=== PATIENT | female | born 1945 | race Caucasian/White ===

== ENCOUNTER 2023-07-16 10:12 | Outpatient (CLI) | payer MEDICARE, BC | END 2023-07-16 10:13 | disposition home or self-care (01) | LOC: MRI 10:12 | PROVIDERS: ATTEND Family Medicine | DX: H53.2 Diplopia (principal); H53.9 Unspecified visual disturbance; G93.9 Disorder of brain, unspecified; J34.89 Other specified disorders of nose and nasal sinuses | CPT/HCPCS: 70553; 82565 ==

== ENCOUNTER 2023-08-02 14:13 | Outpatient (CLI) | payer MEDICARE, BC | END 2023-08-02 14:14 | disposition home or self-care (01) | LOC: BICRAD 14:13 | PROVIDERS: ATTEND Family Medicine | DX: M25.562 Pain in left knee (principal); M25.552 Pain in left hip; M16.12 Unilateral primary osteoarthritis, left hip ==

== ENCOUNTER 2023-08-14 08:13 | Outpatient (CLI) | payer MEDICARE, BC | END 2023-08-14 08:14 | disposition home or self-care (01) | LOC: BICULT 08:13 | PROVIDERS: ATTEND Family Medicine | DX: R10.30 Lower abdominal pain, unspecified (principal); N28.1 Cyst of kidney, acquired | CPT/HCPCS: 76700 ==

== ENCOUNTER 2023-10-29 13:02 | Outpatient (CLI) | payer MEDICARE, BC | END 2023-10-29 13:03 | disposition home or self-care (01) | LOC: CT 13:02 | PROVIDERS: ATTEND Family Medicine | DX: M79.661 Pain in right lower leg (principal); M79.662 Pain in left lower leg; R07.9 Chest pain, unspecified; R79.89 Other specified abnormal findings of blood chemistry | CPT/HCPCS: 71275; 82565; 93970 ==

== ENCOUNTER 2024-01-28 14:07 | Outpatient (CLI) | payer MEDICARE, BC ==
[2024-01-28 16:00] LABS: #Basophils 0.07 10x3/uL (0.0-0.2); #Eosinphils 0.18 10x3/uL (0.0-0.5); #Monocytes 0.57 10x3/uL (0.0-1.1); #Neutrophils 4.68 10x3/uL (1.5-8.4); %Eosinophils 2.7 % (0.0-6.0); %Monocytes 8.5 % (0.0-10.0); %Neutrophils 69.7 % (40.0-75.0); Hematocrit 32.4 % (34.9-44.5); Hemoglobin 11.1 g/dL (12.0-15.5); Mean Corpuscular HGB CONC 34.3 g/dL (32.0-36.0); Mean Corpuscular Volume 93.4 fl (81.6-98.3); Mean Platelet Volume 11.7 fl (7.4-10.4); Platelet Count 186 10x3/uL (150-450); RBC Distribution Width 12.8 % (11.5-14.5); Red Blood Cell (RBC) Count 3.47 10x6/uL (3.90-5.03); White Blood Cell (WBC) Count 6.7 10x3/uL (3.5-10.5)
[2024-01-28 16:31] LABS: ALT (SGPT) 13 U/L (8-55); AST (SGOT) 17 U/L (5-34); Albumin 3.8 g/dL (3.4-4.8); Alkaline Phosphatase 52 U/L (40-110); Anion Gap 16 mmol/L (10-20); BUN (Urea Nitrogen) 27 mg/dL (9.8-20.1); Bilirubin, Total 0.3 mg/dL (0.2-1.2); Calc. Creatinine Clearance 0 mL/min (70-130); Calcium 10.4 mg/dL (7.8-10.44); Carbon Dioxide 19 mmol/L (23-31); Chloride 104 mmol/L (98-107); Estimated GFR 34; Globulin 2.4 g/dL (2.4-3.5); Glucose 281 mg/dL (83-110); Potassium 4.8 mmol/L (3.5-5.1); Protein, Total 6.2 g/dL (5.8-8.1); Sodium 134 mmol/L (136-145)
== END 2024-01-28 14:08 | disposition home or self-care (01) ==
LOC: LABBT 14:07
PROVIDERS: ATTEND Internal Medicine Cardiovascular Disease
DX: Z01.812 Encounter for preprocedural laboratory examination (principal); R07.9 Chest pain, unspecified; I25.10 Atherosclerotic heart disease of native coronary artery without angina pectoris
CPT/HCPCS: 80053; 85025

== ENCOUNTER 2024-01-29 06:45 | Day surgery (SDC) | payer MEDICARE, BC ==
[2024-01-28 14:32] VITALS: BMI 30.2
[2024-01-29] MEDS ORDERED: fentaNYL 50 mcg/mL 1 mL Vial ONE ×2 (09:07→10:13)
[2024-01-29] MEDS ORDERED: Midazolam HCl 2 mg/2 ml Vial ONE (09:07)
[2024-01-29] MEDS ORDERED: Heparin 10,000 UNITS/ 10 ML VIAL ONE (09:15)
[2024-01-29] MEDS ORDERED: hydrALAZINE 20 MG/ML VIAL ONE (10:03)
[2024-01-29] MEDS ORDERED: Acetaminophen/Codeine 30-300mg Tablet ONE (13:59)
[2024-01-29] MEDS ORDERED: Lisinopril 10 MG TAB ONE (14:38)
== END 2024-01-29 15:10 | disposition home or self-care (01) ==
LOC: SDC 06:45
PROVIDERS: ATTEND Internal Medicine Cardiovascular Disease
PROC: 4A023N7 Measurement of Cardiac Sampling and Pressure, Left Heart, Percutaneous Approach (ICD-10-PCS; principal; 2024-01-29)
DX: I25.118 Atherosclerotic heart disease of native coronary artery with other forms of angina pectoris (principal); I73.9 Peripheral vascular disease, unspecified; E78.00 Pure hypercholesterolemia, unspecified; I10 Essential (primary) hypertension; R94.39 Abnormal result of other cardiovascular function study; I35.0 Nonrheumatic aortic (valve) stenosis; E03.9 Hypothyroidism, unspecified; E11.9 Type 2 diabetes mellitus without complications; E78.5 Hyperlipidemia, unspecified; Z88.1 Allergy status to other antibiotic agents; Z86.711 Personal history of pulmonary embolism; Z88.2 Allergy status to sulfonamides; Z88.8 Allergy status to other drugs, medicaments and biological substances; Z90.710 Acquired absence of both cervix and uterus; Z96.653 Presence of artificial knee joint, bilateral; Z79.890 Hormone replacement therapy; Z79.82 Long term (current) use of aspirin; Z79.899 Other long term (current) drug therapy
CPT/HCPCS: 93458; C1769 ×2; C1887; C1894; J0360; J3010; J1644; J2250

== ENCOUNTER 2024-02-14 08:00 | Inpatient (IN) | payer MEDICARE, BC ==
[2024-02-14 09:22] LABS: Hematocrit 36.6 % (34.9-44.5); Hemoglobin 12.3 g/dL (12.0-15.5); Mean Corpuscular HGB CONC 33.6 g/dL (32.0-36.0); Mean Corpuscular Hemoglobin 31.9 pg (27.0-33.0); Mean Corpuscular Volume 95.1 fL (81.6-98.3); Mean Platelet Volume 10.8 fL (7.4-10.4); Platelet Count 230 10x3/uL (150-450); RBC Distribution Width 13.4 % (11.5-14.5); Red Blood Cell (RBC) Count 3.85 10x6/uL (3.90-5.03)
[2024-02-14 09:58] LABS: Anion Gap 12 mmol/L (10-20); BUN (Urea Nitrogen) 20 mg/dL (9.8-20.1); Calc. Creatinine Clearance 0 mL/min (70-130); Calcium 10.3 mg/dL (7.8-10.44); Carbon Dioxide 24 mmol/L (23-31); Chloride 103 mmol/L (98-107); Estimated GFR 46; Glucose 119 mg/dL (83-110); Potassium 4.2 mmol/L (3.5-5.1); Sodium 135 mmol/L (136-145)
[2024-02-17] MEDS ORDERED: Cardioplegic Soln 1,000 ML BAG ONE (07:36)
[2024-02-17] MEDS ORDERED: PHENYLEPHRINE-NS 100 MCG/ML 10 ML SYRINGE ONE (07:36)
[2024-02-17] MEDS ORDERED: PROPOFOL 200 MG/20 ML VIAL ONE (07:36)
[2024-02-17] MEDS ORDERED: Papaverine 60 MG/2 ML VIAL ONE (07:36)
[2024-02-17] MEDS ORDERED: Thrombin 5000 UNITS/5 ML VIAL ONE (07:36)
[2024-02-17] MEDS ORDERED: Ondansetron PF 4 MG/2 ML Vial ONE (07:36)
[2024-02-17] MEDS ORDERED: Heparin 5,000 UNITS/ML VIAL ONE (07:36)
[2024-02-17] MEDS ORDERED: Calcium Chloride 1 GM/10 ML Abboject SYRINGE ONE (07:36)
[2024-02-17] MEDS ORDERED: Potassium Chloride 60 mEq (30 mL) VIAL ONE (07:36)
[2024-02-17] MEDS ORDERED: Magnesium 5 GM/10 ML VIAL ONE (07:36)
[2024-02-17] MEDS ORDERED: Lidocaine 2% PF 100 mg/5 ml Syringe ONE (07:36)
[2024-02-17] MEDS ORDERED: Aminocaproic Acid 5 GM/20 ML VIAL ONE (07:36)
[2024-02-17] MEDS ORDERED: Mannitol 12.5 GM/50 ML ONE (07:36)
[2024-02-17] MEDS ORDERED: Protamine Sulfate 250 MG/25 ML VIAL ONE (07:36)
[2024-02-17] MEDS ORDERED: Sodium Bicarb 50 mEq/50 ML VIAL ONE (07:36)
[2024-02-17] MEDS ORDERED: Rocuronium Bromide 10 MG/ML (10ML VIAL) ONE ×2 (07:36)
[2024-02-17] MEDS ORDERED: Heparin 30,000 units/30 ml VIAL ONE (07:36)
[2024-02-17] MEDS ORDERED: Esmolol 100 MG/10 ML VIAL ONE (07:36)
[2024-02-17] MEDS ORDERED: Vancomycin 1 GM VIAL ONE (07:36)
[2024-02-17] MEDS: fentaNYL 50 mcg/mL 1 mL Vial SLOW IVP SCH (11:05)
[2024-02-17] MEDS: Nitroglycerin 50 MG/250 ML BOT 250 ML IVPB PRN (11:17)
[2024-02-17] MEDS ORDERED: Bisacodyl 5 MG TAB PO PRN (11:29)
[2024-02-17] MEDS ORDERED: fentaNYL 50 mcg/mL 1 mL Vial SLOW IVP PRN (11:29)
[2024-02-17] MEDS ORDERED: Potassium Chloride 20 MEQ (100 mL) BAG IVPB PRN (11:29)
[2024-02-17] MEDS ORDERED: Guaifenesin DM 100-10/5 ML UDCUP PO PRN (11:29)
[2024-02-17] MEDS ORDERED: Ipratropium/Albuterol 3 ML NEB NEB PRN (11:29)
[2024-02-17] MEDS ORDERED: Bisacodyl 10 MG SUPP PR PRN (11:29)
[2024-02-17] MEDS ORDERED: Mag-Al 1200 mg/1200 mg/30 ML UDCUP PO PRN (11:29)
[2024-02-17] MEDS ORDERED: NOREPINEPHRINE 8 MG/250 ML-D5W 250 ML IVPB PRN (11:29)
[2024-02-17] MEDS ORDERED: Albumin 5% 12.5 GM (250 mL) BOT IVPB PRN (11:29)
[2024-02-17] MEDS: hydrALAZINE 20 MG/ML VIAL SLOW IVP PRN (11:35)
[2024-02-17 11:37] LABS: Actual Bicarbonate (HCO3a) 17.2 mEq/L (22-28); Base Excess (BEa) -7.9 mEq/L (-2.0 to +3.0); CO2 Tension 33.4 mmHg (35.0-45.0); Calcium, Ionized (arterial) 1.23 mmol/L (1.12-1.30); Carboxyhemoglobin (COHb) 0.5 gm% (0.0-3.0); Hematocrit-ABG 32 % (36.0-47.0); Hemoglobin (Hb) 10.9 g/dL (12.0-16.0); O2 Tension (PaO2), arterial 87.3 mmHg (> 70.0); Potassium - ABG Lab 4.41 mmol/L (3.70-5.30); pH, Arterial 7.329 (7.35-7.45)
[2024-02-17 11:38] LABS: Puncture Site ALINE
[2024-02-17] MEDS ORDERED: Glucagon 1 MG/ML KIT SC PRN (11:45)
[2024-02-17] MEDS ORDERED: niCARdipine 25 MG in Sodium Chloride 0.9% 250 ML 250 ML IVPB SCH (11:45)
[2024-02-17] MEDS ORDERED: Insulin Regular, Human 100 UNIT/ML 10 ML VIAL SC PRN (11:45)
[2024-02-17] MEDS ORDERED: Dextrose 5% in Water 1,000 ML IV PRN (11:45)
[2024-02-17] MEDS ORDERED: Insulin Reg, Human 100 UNITS in Sodium Chloride 0.9% 100 ML IVPB SCH (11:45)
[2024-02-17 11:47] LABS: Anion Gap 14 mmol/L (10-20); BUN (Urea Nitrogen) 22 mg/dL (9.8-20.1); Calc. Creatinine Clearance 57 mL/min (70-130); Calcium 8.7 mg/dL (7.8-10.44); Carbon Dioxide 19 mmol/L (23-31); Chloride 114 mmol/L (98-107); Estimated GFR 62; Glucose 207 mg/dL (83-110); Potassium 4.7 mmol/L (3.5-5.1); Sodium 142 mmol/L (136-145)
[2024-02-17 11:51] LABS: INR-International Normal Ratio 1.4; Prothrombin Time 16.7 sec (12.0-14.7)
[2024-02-17 11:52] LABS: PTT 29.4 sec (22.9-36.1)
[2024-02-17] MEDS: D5 1/2 NS w/20 mEq KCL 1,000 ML IV SCH (11:54)
[2024-02-17] MEDS: Nitroglycerin 50 MG/250 ML BOT 250 ML ONE (11:56)
[2024-02-17] MEDS: hydrALAZINE 20 MG/ML VIAL ONE (11:57)
[2024-02-17 12:07] VITALS: BMI 28.8
[2024-02-17 12:15] LABS: Platelet Adequacy Comment Platelets Decreased; RBC Morphology Within Normal Limits
[2024-02-17 12:17] LABS: Hematocrit 26.8 % (36.0-47.0); Mean Corpuscular HGB CONC 33.6 g/dL (32.0-36.0); Mean Corpuscular Hemoglobin 31.1 pg (27.0-31.0); Mean Corpuscular Volume 92.7 fL (78.0-98.0); Mean Platelet Volume 11.6 fL (7.4-10.4); Platelet Count 101 10x3/uL (130-400); Red Blood Cell (RBC) Count 2.89 mill/uL (4.20-5.40)
[2024-02-17] MEDS: fentaNYL 50 mcg/mL 1 mL Vial ONE ×2 (12:36→12:37)
[2024-02-17 13:04] LABS: #Basophils 0.03 10x3/uL (0.0-0.2); %Basophils 0.4 % (0.0-1.0); %Eosinophils 1.2 % (0.0-10.0); %Lymphocytes 14.5 % (21.0-51.0); %Monocytes 8.9 % (0.0-10.0); %Neutrophils 73.9 % (42.0-75.0)
[2024-02-17] MEDS: Ketorolac Tromethamine 30 MG (1 mL) VIAL IVP SCH (13:07)
[2024-02-17] MEDS: CEFAZOLIN 2 GM in Sodium Chloride 0.9% 100 ML IVPB SCH (14:26)
[2024-02-17] MEDS: Morphine 2 MG/ML VIAL SLOW IVP PRN (16:27)
[2024-02-17] MEDS: traMADol HCl 50 MG TAB PO PRN (17:08)
[2024-02-17] MEDS: Albumin 5% 12.5 GM (250 mL) BOT IVPB PRN (17:31)
[2024-02-17 17:51] LABS: Hemoglobin 10.7 g/dL (12.0-16.0)
[2024-02-17 18:07] LABS: Potassium 3.8 mmol/L (3.5-5.1)
[2024-02-17] MEDS: traZODone HCl 50 MG TAB PO SCH (20:05)
[2024-02-17] MEDS: Rosuvastatin 20 MG TAB PO SCH (20:05)
[2024-02-18] MEDS: fentaNYL 50 mcg/mL 1 mL Vial SLOW IVP PRN (04:03)
[2024-02-18 04:53] LABS: #Basophils Less than 0.03 10x3/uL (0.0-0.2); #Eosinphils Less than 0.03 10x3/uL (0.0-0.7); %Basophils 0.1 % (0.0-1.0); %Lymphocytes 6.3 % (21.0-51.0); %Monocytes 11.6 % (0.0-10.0); %Neutrophils 81.7 % (42.0-75.0); Hematocrit 28.9 % (36.0-47.0); Hemoglobin 9.4 g/dL (12.0-16.0); Mean Corpuscular HGB CONC 32.5 g/dL (32.0-36.0); Mean Corpuscular Hemoglobin 31.4 pg (27.0-31.0); Mean Corpuscular Volume 96.7 fL (78.0-98.0); Mean Platelet Volume 12.1 fL (7.4-10.4); Platelet Count 104 10x3/uL (130-400); RBC Distribution Width 16.3 % (11.5-14.5); Red Blood Cell (RBC) Count 2.99 mill/uL (4.20-5.40)
[2024-02-18 05:45] LABS: Anion Gap 11 mmol/L (10-20); BUN (Urea Nitrogen) 23 mg/dL (9.8-20.1); Calc. Creatinine Clearance 45 mL/min (70-130); Calcium 8.7 mg/dL (7.8-10.44); Carbon Dioxide 19 mmol/L (23-31); Chloride 113 mmol/L (98-107); Estimated GFR 43; Glucose 149 mg/dL (83-110); Potassium 4.5 mmol/L (3.5-5.1); Sodium 138 mmol/L (136-145)
[2024-02-18] MEDS ORDERED: Dextrose 5% in Water 1,000 ML IV PRN (06:03)
[2024-02-18] MEDS: Levothyroxine Sodium 88 MCG TAB PO SCH (06:47)
[2024-02-18] MEDS: Acetaminophen 325 MG TAB PO PRN (07:43)
[2024-02-18] MEDS: Cholecalciferol 1,000 UNITS (25 MCG) TAB PO SCH (07:43)
[2024-02-18] MEDS: Escitalopram Oxalate 20 mg Tablet PO SCH (07:43)
[2024-02-18] MEDS: Carvedilol 3.125 MG TAB PO SCH (07:44)
[2024-02-18] MEDS: Aspirin 81 mg Enteric Coated Tablet PO SCH (07:45)
[2024-02-18] MEDS: Ezetimibe 10 MG TAB PO SCH (07:45)
[2024-02-18] MEDS: HumaLOG 300 UNITS/3 ML VIAL SC PRN (10:19)
[2024-02-18] MEDS ORDERED: Insulin Glargine 30 UNITS/0.3 ML VIAL SC PRN (11:34)
[2024-02-18] MEDS ORDERED: diphenhydrAMINE 25 MG CAP PO PRN (16:32)
[2024-02-18] MEDS ORDERED: Mineral Oil ENEMA PR PRN (16:32)
[2024-02-18] MEDS ORDERED: Mag-Al 1200 mg/1200 mg/30 ML UDCUP PO PRN (16:32)
[2024-02-18] MEDS ORDERED: Nitroglycerin 0.4 MG TAB (25 Tab Bottle) SL PRN (16:32)
[2024-02-18] MEDS ORDERED: Bisacodyl 10 MG SUPP PR PRN (16:32)
[2024-02-18] MEDS ORDERED: Artificial Tear Ophth Sol 15 ML BOT EA EYE PRN (16:32)
[2024-02-18 17:01] VITALS: BMI 29.1
[2024-02-19] MEDS: Guaifenesin DM 100-10/5 ML UDCUP PO PRN (03:49)
[2024-02-19 04:56] LABS: Cardiac Risk 1.7 (Less than 4.5)
[2024-02-19 04:59] LABS: Hemoglobin A1c 7.2 % (4.0-6.0)
[2024-02-19] MEDS: Furosemide 40 MG TAB PO SCH (08:29)
[2024-02-19] MEDS: Potassium Chloride 10 MEQ TAB PO SCH (08:29)
[2024-02-19] MEDS: Bisacodyl 5 MG TAB PO PRN (13:21)
[2024-02-19] MEDS: Metolazone 5 MG TAB PO SCH (15:58)
[2024-02-19] MEDS: Ondansetron PF 4 MG/2 ML Vial IVP PRN (16:01)
[2024-02-19] MEDS: Milk Of Magnesia 30 ML UDCUP PO PRN (18:18)
[2024-02-19] MEDS: Lacosamide 50 mg Tablet PO SCH (23:00)
[2024-02-19] MEDS: Albumin 25% 25 GM (100 mL) BOT IVPB SCH (23:01)
[2024-02-19] MEDS: Furosemide 20 MG (2 mL) VIAL SLOW IVP SCH (23:43)
[2024-02-20] MEDS: Albumin 25% 25 GM (100 mL) BOT IVPB SCH ×2 (02:02→20:00)
[2024-02-20 05:10] LABS: Hematocrit 27.7 % (36.0-47.0); Hemoglobin 9.2 g/dL (12.0-16.0); Mean Corpuscular HGB CONC 33.2 g/dL (32.0-36.0); Mean Corpuscular Hemoglobin 31.4 pg (27.0-31.0); Mean Corpuscular Volume 94.5 fL (78.0-98.0); Mean Platelet Volume 11.8 fL (7.4-10.4); Platelet Count 102 10x3/uL (130-400); Red Blood Cell (RBC) Count 2.93 mill/uL (4.20-5.40)
[2024-02-20 05:41] LABS: Band 32 % (5-11); Burr Cells SLIGHT = 2-5 cells HPF (0-1); Large Platelets 7.5 % (0-5); Lymphocytes 6 % (21-51); Metamyelocyte 3 % (0-0); Monocytes 6 % (0-10); Neutrophil 54 % (42-75); Platelet Adequacy Comment Platelets Decreased; Polychromasia SLIGHT = 2-3 cells HPF (0-2); Smudge Cells 1.9 %
[2024-02-20 07:18] LABS: Anion Gap 11 mmol/L (10-20); BUN (Urea Nitrogen) 53 mg/dL (9.8-20.1); Calc. Creatinine Clearance 23 mL/min (70-130); Calcium 8.4 mg/dL (7.8-10.44); Carbon Dioxide 18 mmol/L (23-31); Chloride 103 mmol/L (98-107); Estimated GFR 18; Glucose 192 mg/dL (83-110); Magnesium 2.8 mg/dL (1.6-2.6); Phosphorus 3.3 mg/dL (2.3-4.7); Potassium 5.2 mmol/L (3.5-5.1); Sodium 127 mmol/L (136-145)
[2024-02-20] MEDS: Metolazone 5 MG TAB PO SCH (08:24)
[2024-02-20] MEDS: Albumin 25% 100 ML ONE ×2 (08:24→20:46)
[2024-02-20] MEDS: Furosemide 40 MG TAB PO SCH (08:27)
[2024-02-20 10:22] LABS: Actual Bicarbonate (HCO3a) 21.8 mEq/L (22-28); Analyzer IN Cardio OR; Base Excess (BEa) -2.2 mEq/L (-2.0 to +3.0); CO2 Tension 32.9 mmHg (35.0-45.0); Calcium, Ionized (arterial) 1.05 mmol/L (1.12-1.30); Carboxyhemoglobin (COHb) 1.3 gm% (0.0-3.0); Hematocrit-ABG 18 % (36.0-47.0); Hemoglobin (Hb) 6.1 g/dL (12.0-16.0); O2 Tension (PaO2), arterial 406.3 mmHg (> 70.0); Potassium - ABG Lab 5.52 mmol/L (3.70-5.30); pH, Arterial 7.439 (7.35-7.45)
[2024-02-20 10:22] LABS: Actual Bicarbonate (HCO3a) 22.9 mEq/L (22-28); Analyzer IN Cardio OR; CO2 Tension 39.5 mmHg (35.0-45.0); Calcium, Ionized (arterial) 1.04 mmol/L (1.12-1.30); Hematocrit-ABG 21 % (36.0-47.0); Hemoglobin (Hb) 7.3 g/dL (12.0-16.0); O2 Tension (PaO2), arterial 374.9 mmHg (> 70.0); Potassium - ABG Lab 5.54 mmol/L (3.70-5.30); pH, Arterial 7.382 (7.35-7.45)
[2024-02-20 10:22] LABS: Actual Bicarbonate (HCO3a) 19.2 mEq/L (22-28); Analyzer IN Cardio OR; Base Excess (BEa) -5.9 mEq/L (-2.0 to +3.0); CO2 Tension 36.1 mmHg (35.0-45.0); Calcium, Ionized (arterial) 1.18 mmol/L (1.12-1.30); Carboxyhemoglobin (COHb) 0.7 gm% (0.0-3.0); Hematocrit-ABG 25 % (36.0-47.0); Hemoglobin (Hb) 8.5 g/dL (12.0-16.0); O2 Tension (PaO2), arterial 471.1 mmHg (> 70.0); Potassium - ABG Lab 3.88 mmol/L (3.70-5.30); pH, Arterial 7.344 (7.35-7.45)
[2024-02-20 10:22] LABS: Analyzer IN Cardio OR; Base Excess (BEa) -3.6 mEq/L (-2.0 to +3.0); CO2 Tension 30.9 mmHg (35.0-45.0); Calcium, Ionized (arterial) 1.26 mmol/L (1.12-1.30); Carboxyhemoglobin (COHb) 0.6 gm% (0.0-3.0); Hematocrit-ABG 30 % (36.0-47.0); Hemoglobin (Hb) 10.2 g/dL (12.0-16.0); Potassium - ABG Lab 4.15 mmol/L (3.70-5.30); pH, Arterial 7.428 (7.35-7.45)
[2024-02-20 10:23] LABS: Actual Bicarbonate (HCO3a) 21.9 mEq/L (22-28); Analyzer IN Cardio OR; Base Excess (BEa) -2.6 mEq/L (-2.0 to +3.0); CO2 Tension 35.8 mmHg (35.0-45.0); Calcium, Ionized (arterial) 1.26 mmol/L (1.12-1.30); Carboxyhemoglobin (COHb) 1.9 gm% (0.0-3.0); Hematocrit-ABG 19 % (36.0-47.0); Hemoglobin (Hb) 6.4 g/dL (12.0-16.0); O2 Tension (PaO2), arterial 346.5 mmHg (> 70.0); Potassium - ABG Lab 4.68 mmol/L (3.70-5.30); pH, Arterial 7.404 (7.35-7.45)
[2024-02-20 10:23] LABS: Puncture Site Arterial Line
[2024-02-20 10:24] LABS: Puncture Site Arterial Line
[2024-02-20 10:24] LABS: Puncture Site Arterial Line
[2024-02-20 10:24] LABS: Puncture Site Arterial Line
[2024-02-20 10:25] LABS: Puncture Site Arterial Line
[2024-02-20] MEDS: Sodium Chloride 0.9% 500 ML IV SCH (17:40)
[2024-02-20 18:55] LABS: Hematocrit 27.2 % (36.0-47.0); Hemoglobin 9.1 g/dL (12.0-16.0); Mean Corpuscular HGB CONC 33.5 g/dL (32.0-36.0); Mean Corpuscular Hemoglobin 31.5 pg (27.0-31.0); Mean Corpuscular Volume 94.1 fL (78.0-98.0); Mean Platelet Volume 11.4 fL (7.4-10.4); Platelet Count 127 10x3/uL (130-400); RBC Distribution Width 15.2 % (11.5-14.5); Red Blood Cell (RBC) Count 2.89 mill/uL (4.20-5.40)
[2024-02-20 19:04] LABS: ALT (SGPT) 11 U/L (8-55); AST (SGOT) 65 U/L (5-34); Albumin 2.9 g/dL (3.4-4.8); Alkaline Phosphatase 203 U/L (40-110); Anion Gap 11 mmol/L (10-20); BUN (Urea Nitrogen) 67 mg/dL (9.8-20.1); Calc. Creatinine Clearance 18 mL/min (70-130); Calcium 7.9 mg/dL (7.8-10.44); Carbon Dioxide 15 mmol/L (23-31); Chloride 107 mmol/L (98-107); Estimated GFR 14; Globulin 1.7 g/dL (2.4-3.5); Glucose 202 mg/dL (83-110); Protein, Total 4.6 g/dL (5.8-8.1); Sodium 128 mmol/L (136-145)
[2024-02-20 19:32] LABS: Band 36 % (5-11); Burr Cells SLIGHT = 2-5 cells HPF (0-1); Large Platelets 18.5 % (0-5); Lymphocytes 6 % (21-51); Metamyelocyte 5 % (0-0); Monocytes 13 % (0-10); Neutrophil 40 % (42-75); Ovalocytes SLIGHT = 2-5 cells HPF (0-1); Platelet Adequacy Comment Platelets Decreased; Poikilocytosis SLIGHT = 6-15 cells HPF (0-5); Polychromasia SLIGHT = 2-3 cells HPF (0-2); Reactive Lymphocytes 1 % (0-10)
[2024-02-20] MEDS: Sodium Bicarbonate 75 MEQ in Sodium Chloride 0.45% 1,000 ML IV SCH (21:07)
[2024-02-20] MEDS: Lactated Ringer's 500 ML IV SCH (21:13)
[2024-02-21 01:24] LABS: Hematocrit 26.5 % (36.0-47.0); Hemoglobin 8.9 g/dL (12.0-16.0); Mean Corpuscular HGB CONC 33.6 g/dL (32.0-36.0); Mean Corpuscular Hemoglobin 31.4 pg (27.0-31.0); Mean Corpuscular Volume 93.6 fL (78.0-98.0); Mean Platelet Volume 11.3 fL (7.4-10.4); Platelet Count 130 10x3/uL (130-400); RBC Distribution Width 15.2 % (11.5-14.5); Red Blood Cell (RBC) Count 2.83 mill/uL (4.20-5.40)
[2024-02-21] MEDS: Sodium Bicarbonate 75 MEQ in Sodium Chloride 0.45% 1,000 ML IV SCH ×2 (01:41→02:34)
[2024-02-21 01:55] LABS: Anisocytosis SLIGHT = 6-15 cells HPF (0-5); Band 30 % (5-11); Burr Cells SLIGHT = 2-5 cells HPF (0-1); Large Platelets 5.4 % (0-5); Lymphocytes 3 % (21-51); Monocytes 26 % (0-10); Neutrophil 40 % (42-75); Ovalocytes SLIGHT = 2-5 cells HPF (0-1); Platelet Adequacy Comment Platelets Normal; Poikilocytosis SLIGHT = 6-15 cells HPF (0-5); Polychromasia SLIGHT = 2-3 cells HPF (0-2); Smudge Cells 5.4 %
[2024-02-21 02:19] LABS: Anion Gap 15 mmol/L (10-20); BUN (Urea Nitrogen) 72 mg/dL (9.8-20.1); Calc. Creatinine Clearance 16 mL/min (70-130); Calcium 8.1 mg/dL (7.8-10.44); Carbon Dioxide 15 mmol/L (23-31); Chloride 103 mmol/L (98-107); Estimated GFR 13; Glucose 196 mg/dL (83-110); Magnesium 3.3 mg/dL (1.6-2.6); Potassium 5.2 mmol/L (3.5-5.1); Sodium 128 mmol/L (136-145)
[2024-02-21] MEDS: Lactated Ringer's 500 ML IV SCH (02:30)
[2024-02-21] MEDS: Albumin 25% 25 GM (100 mL) BOT IVPB SCH (02:32)
[2024-02-21] MEDS ORDERED: Loperamide HCl 2 MG CAP PO PRN (08:08)
[2024-02-21] MEDS: Albumin 5% 25 GM (500 mL) BOT IVPB SCH ×2 (08:38→18:37)
[2024-02-21] MEDS: Artificial Tear Ophth Sol 15 ML BOT EA EYE SCH (10:19)
[2024-02-21] MEDS: traMADol HCl 50 MG TAB PO PRN ×2 (10:20→22:11)
[2024-02-21] MEDS: Sodium Bicarbonate 150 mEq in Dextrose 5% IV SCH ×2 (13:18→22:12)
[2024-02-21] MEDS ORDERED: traMADol HCl 50 MG TAB PO PRN (14:52)
[2024-02-21] MEDS: NOREPINEPHRINE 8 MG/250 ML-D5W 250 ML IVPB SCH (18:40)
[2024-02-21] MEDS: Atorvastatin Calcium 40 MG TAB PO SCH (20:57)
[2024-02-22 04:14] LABS: Hematocrit 22.9 % (36.0-47.0); Hemoglobin 7.7 g/dL (12.0-16.0); Mean Corpuscular HGB CONC 33.6 g/dL (32.0-36.0); Mean Corpuscular Hemoglobin 30.7 pg (27.0-31.0); Mean Corpuscular Volume 91.2 fL (78.0-98.0); Mean Platelet Volume 12.6 fL (7.4-10.4); Platelet Count 139 10x3/uL (130-400); RBC Distribution Width 15.6 % (11.5-14.5); Red Blood Cell (RBC) Count 2.51 mill/uL (4.20-5.40)
[2024-02-22 04:31] LABS: Anion Gap 18 mmol/L (10-20); BUN (Urea Nitrogen) 80 mg/dL (9.8-20.1); Calc. Creatinine Clearance 13 mL/min (70-130); Calcium 7.1 mg/dL (7.8-10.44); Carbon Dioxide 19 mmol/L (23-31); Chloride 96 mmol/L (98-107); Estimated GFR 10; Glucose 242 mg/dL (83-110); Potassium 4.7 mmol/L (3.5-5.1); Sodium 128 mmol/L (136-145)
[2024-02-22 04:38] LABS: Band 19 % (5-11); Hypochromia SLIGHT = 6-15 cells HPF (0-5); Large Platelets 4.6 % (0-5); Lymphocytes 7 % (21-51); Metamyelocyte 4 % (0-0); Monocytes 30 % (0-10); Neutrophil 41 % (42-75); Nucleated RBC (Manual Ct) 1 % (0); Platelet Adequacy Comment Platelets Normal; Polychromasia MODERATE = 3-4 cells HPF (0-2)
[2024-02-22] MEDS: Sodium Chloride 0.9% 500 ML IV SCH (10:15)
[2024-02-22 10:46] LABS: Actual Bicarbonate (HCO3v) 22.1 mEq/L (22-28); Base Excess -4.8 mEq/L (-2.0 to +3.0); Chloride (VBG) 93 mmol/L (98-106); Hematocrit-VBG 24 % (36.0-47.0); Hemoglobin (Hb) 8.1 g/dL (11.7-16.1); Potassium (VBG) 4.56 mmol/L (3.70-5.30); Sodium 128 mmol/L (133-146); pH (venous) 7.262 (7.32-7.43)
[2024-02-22 15:29] LABS: Hep B Core Total Index 0.06 S/CO (0-0.79); Hep C Index 0.03 S/CO (0-0.79)
[2024-02-22 15:42] LABS: HBSAB Concentration Less than 8.00 mIU/mL; Hep B Core Total Ab NONREACTIVE (NonReactive); Hep B Surf AB NONREACTIVE (NonReactive); Hep C IgG Ab NONREACTIVE S/CO (NonReactive)
[2024-02-22 16:07] LABS: HBsAg Index 0.27 S/CO (0-0.99); Hep B Surf Ag NonReactive S/CO (NonReactive)
[2024-02-22] MEDS: Sodium Chloride 0.9% 1,000 ML IV SCH (17:33)
[2024-02-23 05:16] LABS: Anion Gap 21 mmol/L (10-20); BUN (Urea Nitrogen) 59 mg/dL (9.8-20.1); Calc. Creatinine Clearance 16 mL/min (70-130); Calcium 7.2 mg/dL (7.8-10.44); Carbon Dioxide 22 mmol/L (23-31); Chloride 98 mmol/L (98-107); Estimated GFR 11; Glucose 156 mg/dL (83-110); Sodium 137 mmol/L (136-145)
[2024-02-23] MEDS: Furosemide 40 MG (4 mL) VIAL SLOW IVP SCH (05:34)
[2024-02-23 06:36] LABS: Anisocytosis SLIGHT = 6-15 cells HPF (0-5); Band 14 % (5-11); Dohle Bodies MODERATE; Eosinophils 2 % (0-10); Large Platelets 5.7 % (0-5); Lymphocytes 2 % (21-51); Macrocytosis SLIGHT = 6-15 cells HPF (0-5); Monocytes 9 % (0-10); Neutrophil 74 % (42-75); Nucleated RBC (Manual Ct) 1 % (0); Ovalocytes SLIGHT = 2-5 cells HPF (0-1); Platelet Adequacy Comment Platelets Decreased; Polychromasia MODERATE = 3-4 cells HPF (0-2); Smudge Cells 0.9 %
[2024-02-23 06:39] LABS: Hematocrit 27.1 % (36.0-47.0); Hemoglobin 9.3 g/dL (12.0-16.0); Mean Corpuscular HGB CONC 34.3 g/dL (32.0-36.0); Mean Corpuscular Hemoglobin 30.9 pg (27.0-31.0); Mean Platelet Volume 12.2 fL (7.4-10.4); Platelet Count 111 10x3/uL (130-400); RBC Distribution Width 15.5 % (11.5-14.5); Red Blood Cell (RBC) Count 3.01 mill/uL (4.20-5.40)
[2024-02-23 07:30] LABS: Actual Bicarbonate (HCO3a) 22.9 mEq/L (22-28); Base Excess (BEa) -0.5 mEq/L (-2.0 to +3.0); CO2 Tension 32.8 mmHg (35.0-45.0); Calcium, Ionized (arterial) 0.91 mmol/L (1.12-1.30); Carboxyhemoglobin (COHb) 0.7 gm% (0.0-3.0); Hematocrit-ABG 30 % (36.0-47.0); Hemoglobin (Hb) 10.1 g/dL (12.0-16.0); O2 Tension (PaO2), arterial 145.9 mmHg (> 70.0); Potassium - ABG Lab 4.09 mmol/L (3.70-5.30); pH, Arterial 7.461 (7.35-7.45)
[2024-02-23 07:32] LABS: Puncture Site LBA
[2024-02-23] MEDS ORDERED: Sodium Bicarb 50 MEQ/50 ML Abboject 8.4% SYRINGE ONE (07:47)
[2024-02-23] MEDS ORDERED: EPINEPHrine 1 MG/10 ML Abboject SYRINGE ONE (07:47)
[2024-02-23 08:28] LABS: ALV-art Gradient 587.775 mmHg (0-20); Actual Bicarbonate (HCO3a) 18.6 mEq/L (22-28); Base Excess (BEa) -8.8 mEq/L (-2.0 to +3.0); CO2 Tension 46.9 mmHg (35.0-45.0); Calcium, Ionized (arterial) 1.14 mmol/L (1.12-1.30); Carboxyhemoglobin (COHb) 0.8 gm% (0.0-3.0); Hematocrit-ABG 29 % (36.0-47.0); O2 Tension (PaO2), arterial 66.6 mmHg (> 70.0); Potassium - ABG Lab 3.94 mmol/L (3.70-5.30); Puncture Site Arterial Line; pH, Arterial 7.216 (7.35-7.45)
[2024-02-23] MEDS ORDERED: Dextrose 50% Abboject 50 ML SYRINGE SLOW IVP PRN (08:29)
[2024-02-23] MEDS ORDERED: Dextrose 5% in Water 1,000 ML IV PRN (08:29)
[2024-02-23] MEDS ORDERED: Glucagon 1 MG/ML KIT IM PRN (08:29)
[2024-02-23] MEDS ORDERED: Morphine 2 MG/ML VIAL SLOW IVP PRN (08:30)
[2024-02-23] MEDS ORDERED: Propofol BOLUS 1,000 MG/100 ML VIAL IV PRN (08:30)
[2024-02-23] MEDS ORDERED: Fentanyl BOLUS 250 ML IVPB PRN (08:30)
[2024-02-23] MEDS ORDERED: Lorazepam 2 MG/ML VIAL SLOW IVP PRN (08:30)
[2024-02-23] MEDS ORDERED: Propofol 1,000 MG/100 ML VIAL IV PRN (08:30)
[2024-02-23] MEDS ORDERED: Pantoprazole 40 MG VIAL IVP SCH (09:00)
[2024-02-23 09:07] LABS: INR-International Normal Ratio 1.5; PTT 34.4 sec (22.9-36.1); Prothrombin Time 18.2 sec (12.0-14.7)
[2024-02-23 09:13] LABS: ALT (SGPT) 44 U/L (8-55); AST (SGOT) 210 U/L (5-34); Albumin 2.4 g/dL (3.4-4.8); Alkaline Phosphatase 163 U/L (40-110); Anion Gap 24 mmol/L (10-20); BUN (Urea Nitrogen) 62 mg/dL (9.8-20.1); Bilirubin, Total 1.4 mg/dL (0.2-1.2); Calc. Creatinine Clearance 15 mL/min (70-130); Calcium 7.9 mg/dL (7.8-10.44); Carbon Dioxide 17 mmol/L (23-31); Chloride 103 mmol/L (98-107); Estimated GFR 10; Globulin 1.5 g/dL (2.4-3.5); Glucose 171 mg/dL (83-110); Lipase 46 U/L (8-78); Potassium 4.1 mmol/L (3.5-5.1); Protein, Total 3.9 g/dL (5.8-8.1); Sodium 140 mmol/L (136-145)
[2024-02-23 09:14] LABS: Platelet Count 129 10x3/uL (130-400)
[2024-02-23 09:18] LABS: Hematocrit 31.6 % (36.0-47.0); Hemoglobin 10.5 g/dL (12.0-16.0); Mean Corpuscular HGB CONC 33.2 g/dL (32.0-36.0); Mean Corpuscular Hemoglobin 30.6 pg (27.0-31.0); Mean Corpuscular Volume 92.1 fL (78.0-98.0); Mean Platelet Volume 12.7 fL (7.4-10.4); RBC Distribution Width 15.7 % (11.5-14.5); Red Blood Cell (RBC) Count 3.43 mill/uL (4.20-5.40)
[2024-02-23] MEDS ORDERED: ZOSYN IVPB PRN (09:24)
[2024-02-23 09:28] LABS: Lactic Acid 8.1 mmol/L (0.5-2.2)
[2024-02-23 09:29] LABS: Troponin I 3.381 ng/mL (< 0.028)
[2024-02-23] MEDS: Fentanyl CADD 100 ML IV SCH (09:41)
[2024-02-23 09:42] LABS: Band 4 % (5-11); Burr Cells SLIGHT = 2-5 cells HPF (0-1); Large Platelets 7.2 % (0-5); Lymphocytes 13 % (21-51); Macrocytosis SLIGHT = 6-15 cells HPF (0-5); Metamyelocyte 1 % (0-0); Monocytes 27 % (0-10); Neutrophil 56 % (42-75); Nucleated RBC (Manual Ct) 2 % (0); Ovalocytes SLIGHT = 2-5 cells HPF (0-1); Platelet Adequacy Comment Platelets Normal; Polychromasia SLIGHT = 2-3 cells HPF (0-2); Smudge Cells 1.8 %
[2024-02-23 09:59] LABS: Actual Bicarbonate (HCO3a) 19.7 mEq/L (22-28); Base Excess (BEa) -6.3 mEq/L (-2.0 to +3.0); Calcium, Ionized (arterial) 1.03 mmol/L (1.12-1.30); Carboxyhemoglobin (COHb) 0.8 gm% (0.0-3.0); Hematocrit-ABG 39 % (36.0-47.0); Hemoglobin (Hb) 13.3 g/dL (12.0-16.0); Potassium - ABG Lab 4.03 mmol/L (3.70-5.30)
[2024-02-23] MEDS: Lactated Ringer's 1,000 ML IV SCH (10:00)
[2024-02-23 10:02] LABS: O2 Tension (PaO2), arterial 54.3 mmHg (> 70.0)
[2024-02-23 10:03] LABS: Puncture Site Arterial Line
[2024-02-23] MEDS: Vasopressin 20 UNITS in Sodium Chloride 0.9% 50 ML IV PRN (10:40)
[2024-02-23] MEDS: Fentanyl CADD 100 ML ONE (11:10)
[2024-02-23] MEDS: Ventilator Sedation Protocol 1 EACH FS ONE (11:10)
[2024-02-23] MEDS: Piperacillin/Tazobactam 3.375 GM in Sodium Chloride 0.9% 100 ML IVPB SCH ×2 (11:17→15:55)
[2024-02-23] MEDS: Pantoprazole 40 MG VIAL IVP SCH (11:38)
[2024-02-23] MEDS: Pantoprazole 80 MG, Admixture Fee 1 EACH in Sodium Chloride 0.9% 100 ML IVPB SCH (11:47)
[2024-02-23] MEDS: Hydrocortisone Sod Succ/PF 100 mg/2 ml Vial IVP SCH ×2 (12:20→21:04)
[2024-02-23] MEDS: Hydrocortisone Sod Succ/PF 100 mg/2 ml Vial ONE (12:40)
[2024-02-23] MEDS: Phenylephrine 40 MG in Sodium Chloride 0.9% 250 ML 250 ML IVPB SCH (13:49)
[2024-02-23] MEDS: Albumin 25% 25 GM (100 mL) BOT IVPB SCH (15:00)
[2024-02-23] MEDS: Albumin 25% 100 ML ONE (15:21)
[2024-02-23] MEDS: Dextrose 50% Abboject 50 ML SYRINGE SLOW IVP PRN (16:10)
[2024-02-23 16:19] LABS: Hematocrit 36.6 % (36.0-47.0); Mean Corpuscular HGB CONC 32.8 g/dL (32.0-36.0); Mean Corpuscular Hemoglobin 30.7 pg (27.0-31.0); Mean Corpuscular Volume 93.6 fL (78.0-98.0); Mean Platelet Volume 11.9 fL (7.4-10.4); Platelet Count 77 10x3/uL (130-400); RBC Distribution Width 15.6 % (11.5-14.5); Red Blood Cell (RBC) Count 3.91 mill/uL (4.20-5.40)
[2024-02-23 16:47] LABS: Albumin 2.7 g/dL (3.4-4.8); Chloride 101 mmol/L (98-107); Potassium 5.1 mmol/L (3.5-5.1); Sodium 136 mmol/L (136-145)
[2024-02-23 16:48] LABS: Calcium 7.3 mg/dL (7.8-10.44); Globulin 1.6 g/dL (2.4-3.5); Glucose 55 mg/dL (83-110); Protein, Total 4.3 g/dL (5.8-8.1)
[2024-02-23 16:49] LABS: Anion Gap 30 mmol/L (10-20); Carbon Dioxide 10 mmol/L (23-31)
[2024-02-23 16:51] LABS: Alkaline Phosphatase 187 U/L (40-110)
[2024-02-23 16:52] LABS: BUN (Urea Nitrogen) 64 mg/dL (9.8-20.1); Band 33 % (5-11); Burr Cells SLIGHT = 2-5 cells HPF (0-1); Calc. Creatinine Clearance 15 mL/min (70-130); Dohle Bodies MODERATE; Eosinophils 1 % (0-10); Estimated GFR 10; Lymphocytes 9 % (21-51); Metamyelocyte 8 % (0-0); Monocytes 31 % (0-10); Myelocyte 2 % (0-0); Neutrophil 17 % (42-75); Nucleated RBC (Manual Ct) 22 % (0); Platelet Adequacy Comment Platelets Decreased; Polychromasia SLIGHT = 2-3 cells HPF (0-2); Toxic Granulation SLIGHT; Vacuoles MODERATE
[2024-02-23 16:54] LABS: ALT (SGPT) 139 U/L (8-55); AST (SGOT) 516 U/L (5-34)
[2024-02-23 17:02] LABS: Bilirubin, Total 2.5 mg/dL (0.2-1.2)
[2024-02-23 17:19] LABS: Lactic Acid 14.1 mmol/L (0.5-2.2)
[2024-02-23] MEDS: Dextrose 50% Abboject 50 ML SYRINGE ONE (17:22)
[2024-02-23 17:36] LABS: Base Excess (BEa) -20.8 mEq/L (-2.0 to +3.0); CO2 Tension 44.5 mmHg (35.0-45.0); Carboxyhemoglobin (COHb) 0.9 gm% (0.0-3.0); Hematocrit-ABG 34 % (36.0-47.0); Hemoglobin (Hb) 11.7 g/dL (12.0-16.0); Potassium - ABG Lab 4.82 mmol/L (3.70-5.30)
[2024-02-23 17:38] LABS: Actual Bicarbonate (HCO3a) 10.2 mEq/L (22-28); O2 Tension (PaO2), arterial 45.6 mmHg (> 70.0); pH, Arterial 6.979 (7.35-7.45)
[2024-02-23 17:39] LABS: ALV-art Gradient 611.775 mmHg (0-20); Puncture Site Arterial Line
[2024-02-23] MEDS: Sodium Bicarb 50 MEQ/50 ML Abboject 8.4% SYRINGE ONE (17:40)
[2024-02-23] MEDS ORDERED: Phenylephrine 40 MG, Admixture Fee 1 EACH in Sodium Chloride 0.9% 250 ML 250 ML IVPB SCH (17:45)
[2024-02-23 18:09] VITALS: BP 89/32
[2024-02-23] MEDS ORDERED: Albumin 25% 25 GM (100 mL) BOT IVPB SCH (21:00)
[2024-02-23 23:53] VITALS: TEMP 99.2
== END 2024-02-23 18:29 | disposition expired | DRG 235 ==
LOC: EDSTATUS 02-17 08:00 → SURG A 02-17 08:10 → CCU 02-17 11:11 → 2NO 02-18 19:17 → CCU 02-20 19:02
PROVIDERS: ADMIT Thoracic Surgery (Cardiothoracic Vascular Surgery); ATTEND Thoracic Surgery (Cardiothoracic Vascular Surgery)
PROC: 06BQ3ZZ Excision of Left Saphenous Vein, Percutaneous Approach (ICD-10-PCS; 2024-02-17)
PROC: 5A1221Z Performance of Cardiac Output, Continuous (ICD-10-PCS; 2024-02-17)
PROC: 30233N1 Transfusion of Nonautologous Red Blood Cells into Peripheral Vein, Percutaneous Approach (ICD-10-PCS; 2024-02-17)
PROC: 02L70CK Occlusion of Left Atrial Appendage with Extraluminal Device, Open Approach (ICD-10-PCS; 2024-02-17)
PROC: 4A133R1 Monitoring of Arterial Saturation, Peripheral, Percutaneous Approach (ICD-10-PCS; 2024-02-17)
PROC: 3E03329 Introduction of Other Anti-infective into Peripheral Vein, Percutaneous Approach (ICD-10-PCS; 2024-02-17)
PROC: 30233J1 Transfusion of Nonautologous Serum Albumin into Peripheral Vein, Percutaneous Approach (ICD-10-PCS; 2024-02-20)
PROC: 3E033XZ Introduction of Vasopressor into Peripheral Vein, Percutaneous Approach (ICD-10-PCS; 2024-02-20)
PROC: 06HY33Z Insertion of Infusion Device into Lower Vein, Percutaneous Approach (ICD-10-PCS; 2024-02-22)
PROC: 5A09357 Assistance with Respiratory Ventilation, Less than 24 Consecutive Hours, Continuous Positive Airway Pressure (ICD-10-PCS; 2024-02-22)
PROC: 02100Z9 Bypass Coronary Artery, One Artery from Left Internal Mammary, Open Approach (ICD-10-PCS; principal; 2024-02-23)
PROC: 021109W Bypass Coronary Artery, Two Arteries from Aorta with Autologous Venous Tissue, Open Approach (ICD-10-PCS; 2024-02-23)
PROC: 0BH17EZ Insertion of Endotracheal Airway into Trachea, Via Natural or Artificial Opening (ICD-10-PCS; 2024-02-23)
PROC: 0B968ZZ Drainage of Right Lower Lobe Bronchus, Via Natural or Artificial Opening Endoscopic (ICD-10-PCS; 2024-02-23)
PROC: 0B9H8ZZ Drainage of Lung Lingula, Via Natural or Artificial Opening Endoscopic (ICD-10-PCS; 2024-02-23)
PROC: 03HY32Z Insertion of Monitoring Device into Upper Artery, Percutaneous Approach (ICD-10-PCS; 2024-02-23)
PROC: 0DJ08ZZ Inspection of Upper Intestinal Tract, Via Natural or Artificial Opening Endoscopic (ICD-10-PCS; 2024-02-23)
PROC: 30233L1 Transfusion of Nonautologous Fresh Plasma into Peripheral Vein, Percutaneous Approach (ICD-10-PCS; 2024-02-23)
PROC: 4A133B1 Monitoring of Arterial Pressure, Peripheral, Percutaneous Approach (ICD-10-PCS; 2024-02-23)
PROC: 4A133J1 Monitoring of Arterial Pulse, Peripheral, Percutaneous Approach (ICD-10-PCS; 2024-02-23)
PROC: 5A1935Z Respiratory Ventilation, Less than 24 Consecutive Hours (ICD-10-PCS; 2024-02-23)
DX: I25.10 Atherosclerotic heart disease of native coronary artery without angina pectoris (principal); G93.41 Metabolic encephalopathy; J96.01 Acute respiratory failure with hypoxia; K22.11 Ulcer of esophagus with bleeding; E87.20 Acidosis, unspecified; N17.9 Acute kidney failure, unspecified; D62 Acute posthemorrhagic anemia; T17.890A Other foreign object in other parts of respiratory tract causing asphyxiation, initial encounter; Z66 Do not resuscitate; R19.7 Diarrhea, unspecified; N18.9 Chronic kidney disease, unspecified; E11.22 Type 2 diabetes mellitus with diabetic chronic kidney disease; E88.09 Other disorders of plasma-protein metabolism, not elsewhere classified; E87.5 Hyperkalemia; E86.0 Dehydration; R57.1 Hypovolemic shock; I95.81 Postprocedural hypotension; I12.9 Hypertensive chronic kidney disease with stage 1 through stage 4 chronic kidney disease, or unspecified chronic kidney disease; I48.91 Unspecified atrial fibrillation; K26.9 Duodenal ulcer, unspecified as acute or chronic, without hemorrhage or perforation; I46.9 Cardiac arrest, cause unspecified; R57.8 Other shock; I35.0 Nonrheumatic aortic (valve) stenosis; M19.90 Unspecified osteoarthritis, unspecified site; E78.00 Pure hypercholesterolemia, unspecified; G89.29 Other chronic pain; G40.909 Epilepsy, unspecified, not intractable, without status epilepticus; E86.9 Volume depletion, unspecified; M81.0 Age-related osteoporosis without current pathological fracture; E03.9 Hypothyroidism, unspecified; Z90.49 Acquired absence of other specified parts of digestive tract; Z90.710 Acquired absence of both cervix and uterus; Z96.653 Presence of artificial knee joint, bilateral; Z87.891 Personal history of nicotine dependence; Z79.82 Long term (current) use of aspirin; Z79.84 Long term (current) use of oral hypoglycemic drugs; Z79.899 Other long term (current) drug therapy; Z80.42 Family history of malignant neoplasm of prostate; Z80.0 Family history of malignant neoplasm of digestive organs; Z86.718 Personal history of other venous thrombosis and embolism; Z01.818 Encounter for other preprocedural examination
CPT/HCPCS: 36415; 36416; 36430; 36600; 70450; 71045; 71046; 74018; 80048; 80061; 82274; 82805; 83036; 83605; 83690; 83735; 83880; 84100; 84484; 85025; 85027; 85610; 85730; 86704; 86706; 86803; 86850; 86900; 86901; 87324; 87340; 87449; 93005; 93010; 93798; 94002; 94150; 94660; A4311; A4648; C1751; C9113; J0171; J0360; J1642; J1644; J1720; J1815; J1885; J1940; J2001; J2150; J2272; J2371; J2405; J2440; J2543; J2704; J2720; J3010; J3370; J3475; J3480; J3490; J7030; J7050; J7070; J7120; J7999; P9016; P9045; P9047; P9048; S0017

== ENCOUNTER 2024-02-14 08:15 | Outpatient (CLI) | payer MEDICARE, BC | END 2024-02-14 08:16 | disposition home or self-care (01) | LOC: LABBT 08:15 | PROVIDERS: ATTEND Thoracic Surgery (Cardiothoracic Vascular Surgery) | DX: Z01.818 Encounter for other preprocedural examination (principal); I25.10 Atherosclerotic heart disease of native coronary artery without angina pectoris | CPT/HCPCS: 71046 ==